=== PATIENT | male | born 1930 | race Caucasian/White ===

== ENCOUNTER 2016-11-24 16:43 | Emergency (ER) | payer MEDICARE, OTHER ==
[~2016-11-24] VITALS: Ht 172.7 cm; Wt 82.7 kg
[2016-11-24] MEDS ORDERED: AMLO-511 PO (16:54)
[2016-11-24] MEDS ORDERED: VALS80TA2 PO (16:54)
[2016-11-24] MEDS ORDERED: ASPI81 PO (16:54)
[2016-11-24] MEDS ORDERED: FURO40I IV (16:54)
[2016-11-24] MEDS ORDERED: FINA5TAB41 PO (16:54)
[2016-11-24] MEDS ORDERED: HYDROCODONE/ACETAMINOPHEN 10-325 MG TABLET PO ONE (17:15)
[2016-11-24 18:06] LABS: GLUCOSE,POINT OF CARE 141 MG/DL (70-110)
[2016-11-24 18:56] VITALS: BP 145/76
[2016-12-19] MEDS ORDERED: DSS100 PO (14:12)
[2016-12-19] MEDS ORDERED: FERR-89 PO (14:12)
== END 2016-11-24 19:21 | disposition home or self-care (01) ==
LOC: EMS 16:44
DX: S43.402A Unspecified sprain of left shoulder joint, initial encounter (principal); I11.9 Hypertensive heart disease without heart failure; Z79.82 Long term (current) use of aspirin; X58.XXXA Exposure to other specified factors, initial encounter; Y93.89 Activity, other specified; Y92.89 Other specified places as the place of occurrence of the external cause; Y99.8 Other external cause status
CPT/HCPCS: 82962; 99284

== ENCOUNTER 2016-12-05 20:36 | Inpatient (IN) | payer MEDICARE, OTHER ==
[~2016-12-05] VITALS: Ht 175.3 cm; Wt 83.0 kg
[~2016-12-05 20:36] MED LIST: AMLO-511 PO; ASPI81 PO; FINA5TAB41 PO; FURO40I IV; VALS80TA2 PO
[2016-12-05 21:28] LABS: BASOPHILS % (AUTO) 0.3 % (0.0-2.0); EOSINOPHILS % (AUTO) 3.3 % (1.0-6.0); HEMATOCRIT 24.2 % (41-53); HEMOGLOBIN 7.6 g/dL (13.5-17.5); LYMPHOCYTES # (AUTO) 0.7 K/uL (1.0-4.8); LYMPHOCYTES % (AUTO) 5.1 % (22.0-44.0); MEAN CORPUSCULAR HEMOGLOBIN 23.7 pg (26.0-34.0); MEAN CORPUSCULAR HGB CONC 31.2 G/dL (31.0-37.0); MEAN CORPUSCULAR VOLUME 76 fL (80-100); MONOCYTES # (AUTO) 0.5 K/uL (0.1-1.0); MONOCYTES % (AUTO) 3.8 % (2.0-9.0); NEUTROPHILS # (AUTO) 11.4 K/uL (1.8-7.7); PLATELET COUNT (AUTO) 670 K/uL (150-450); RED BLOOD CELL COUNT(AUTO) 3.19 MIL/uL (4.50-5.90); RED CELL DISTRIBUTION WIDTH 17.4 % (11.5-14.5)
[2016-12-05 21:29] LABS: NEUTROPHILS % (AUTO) 87.5 % (40.0-70.0)
[2016-12-05 21:39] LABS: ANION GAP 7 mmol/L (8-16); CALCIUM, TOTAL 8.5 mg/dL (8.8-10.5); CARBON DIOXIDE 28 mmol/L (22-29); CHLORIDE 106 mmol/L (98-107); CREATININE 1.85 mg/dL (0.60-1.30); GLOMERULAR FILTR. RATE CALC 35 mL/min (>60); POTASSIUM 4.1 mmol/L (3.5-5.1); SODIUM SERUM 141 mmol/L (136-145); UREA NITROGEN, BLOOD 32 mg/dL (7-18)
[2016-12-05 21:43] LABS: INR 1.1 (0.9-1.1); PROTHROMBIN TIME 11.6 SEC (9.4-11.6)
[2016-12-05 21:46] LABS: ALANINE AMINOTRANSFERASE 42 U/L (12-78); ALBUMIN 2.2 g/dL (3.4-5.0); ASPARTATE AMINOTRANSFERASE 24 U/L (15-37); BILIRUBIN,TOTAL 0.3 mg/dL (0.1-1.0); CREATINE KINASE, TOTAL 49 U/L (39-308); TOTAL PROTEIN, SERUM 7.7 g/dL (6.4-8.2)
[2016-12-05 21:48] LABS: B-TYPE NATRIURETIC PEPTIDE 438 pg/mL (0-100)
[2016-12-05 21:51] LABS: RBC MORPHOLOGY COMMENT ABNORMAL RBC MORPH
[2016-12-05 22:03] LABS: APPEARANCE,URINE CLOUDY (CLEAR); GLUCOSE, URINE (UA) NEGATIVE (NEGATIVE); PROTEIN,URINE SEE CONFIRM (NEGATIVE)
[2016-12-05 22:04] LABS: ADD UA MICROSCOPIC YES; KETONES,URINE NEGATIVE (NEGATIVE); LEUKOCYTE ESTERASE ,URINE MODERATE (NEGATIVE); OCCULT BLOOD,URINE MODERATE (NEGATIVE)
[2016-12-05 22:09] LABS: RBC,URINE 0-2 /HPF (0-2); SULFOSALICYLIC ACID,URINE 2+ (Negative); WBC,URINE 26-50 /HPF (0-5)
[2016-12-05] MEDS ORDERED: BISACODYL 10 MG RECTAL RECTAL SUPPOSITORY PR PRN (23:00)
[2016-12-05] MEDS ORDERED: MAGNESIUM HYDROXIDE SUSPENSION 30 ML UDCUP PO PRN (23:00)
[2016-12-05] MEDS ORDERED: ONDANSETRON HCL 4 MG/2 ML VIAL IVP PRN (23:00)
[2016-12-05] MEDS ORDERED: ZOLPIDEM TARTRATE 5 MG TABLET PO PRN (23:00)
[2016-12-05] MEDS ORDERED: CefTRIAXone 1 GM/DEXTROSE 50 ML IV ONE (23:15)
[2016-12-06] VITALS (16 sets, daily range): BP systolic 134–151; BP diastolic 53–91
[2016-12-06] MEDS: ACETAMINOPHEN 325 MG TABLET PO PRN ×3 (01:52→20:35)
[2016-12-06] MEDS ORDERED: INFLUENZA VIRUS VACCINE QVS 2016-17 (3YR+)/PF 60 MCG/0.5 ML SYRINGE IM ONE (02:30)
[2016-12-06] MEDS ORDERED: PNEUMOCOCCAL VACCINE POLYVALENT 0.5 ML VIAL [PPSV23] IM ONE (02:30)
[2016-12-06 05:59] LABS: BASOPHILS % (AUTO) 0.1 % (0.0-2.0); EOSINOPHILS % (AUTO) 3.4 % (1.0-6.0); HEMATOCRIT 21.6 % (41-53); LYMPHOCYTES # (AUTO) 0.8 K/uL (1.0-4.8); LYMPHOCYTES % (AUTO) 6.6 % (22.0-44.0); MEAN CORPUSCULAR HEMOGLOBIN 23.9 pg (26.0-34.0); MEAN CORPUSCULAR HGB CONC 31.5 G/dL (31.0-37.0); MEAN CORPUSCULAR VOLUME 76 fL (80-100); MONOCYTES # (AUTO) 0.6 K/uL (0.1-1.0); MONOCYTES % (AUTO) 4.9 % (2.0-9.0); PLATELET COUNT (AUTO) 578 K/uL (150-450); RED BLOOD CELL COUNT(AUTO) 2.85 MIL/uL (4.50-5.90); RED CELL DISTRIBUTION WIDTH 16.9 % (11.5-14.5); WHITE BLOOD COUNT (AUTO) 11.7 K/uL (4.5-11.0)
[2016-12-06 06:17] LABS: CALCIUM, TOTAL 8.2 mg/dL (8.8-10.5); CHOL/HDL RATIO 3.4 (4.2-7.3); CREATINE KINASE, TOTAL 33 U/L (39-308); CREATININE 1.62 mg/dL (0.60-1.30); GLOMERULAR FILTR. RATE CALC 41 mL/min (>60); THYROID STIMULATING HORMONE 5.96 uIU/mL (0.36-3.74); UREA NITROGEN, BLOOD 29 mg/dL (7-18)
[2016-12-06 06:54] LABS: HEMOGLOBIN 6.8 g/dL (13.5-17.5)
[2016-12-06 06:55] LABS: RBC MORPHOLOGY COMMENT ABNORMAL RBC MORPH
[2016-12-06 07:27] LABS: ANION GAP 11 mmol/L (8-16); CARBON DIOXIDE 26 mmol/L (22-29); CHLORIDE 108 mmol/L (98-107); POTASSIUM 3.9 mmol/L (3.5-5.1); SODIUM SERUM 145 mmol/L (136-145)
[2016-12-06] MEDS: AmLODIPine BESYLATE 5 MG TABLET PO SCH (07:51)
[2016-12-06] MEDS: PANTOPRAZOLE SODIUM 40 MG/VIAL IVP SCH (07:51)
[2016-12-06] MEDS: FINASTERIDE 5 MG TABLET PO SCH (07:51)
[2016-12-06 08:23] LABS: HEMOGLOBIN A1C 6.4 % (4.5-6.2)
[2016-12-06] MEDS ORDERED: VALSARTAN 40 MG TABLET PO SCH (09:00)
[2016-12-06] MEDS ORDERED: DiphenhydrAMINE HCL 25 MG CAPSULE PO ONE (09:30)
[2016-12-06] MEDS ORDERED: FUROSEMIDE 20 MG/2 ML VIAL IVP ONE (09:30)
[2016-12-06] MEDS ORDERED: SODIUM CHLORIDE 0.9% 250 ML IV ONE ×2 (10:12→23:06)
[2016-12-06 11:10] LABS: CALCIUM, TOTAL 8.2 mg/dL (8.8-10.5); CREATININE 1.63 mg/dL (0.60-1.30); POTASSIUM 3.9 mmol/L (3.5-5.1)
[2016-12-06 11:12] LABS: HEMATOCRIT 22.3 % (41-53); MEAN CORPUSCULAR HEMOGLOBIN 23.9 pg (26.0-34.0); MEAN CORPUSCULAR HGB CONC 31.5 G/dL (31.0-37.0); MEAN CORPUSCULAR VOLUME 76 fL (80-100); RED BLOOD CELL COUNT(AUTO) 2.94 MIL/uL (4.50-5.90); RED CELL DISTRIBUTION WIDTH 17.4 % (11.5-14.5)
[2016-12-06 11:13] LABS: BASOPHILS % (AUTO) 0.2 % (0.0-2.0); EOSINOPHILS % (AUTO) 2.9 % (1.0-6.0); LYMPHOCYTES # (AUTO) 0.6 K/uL (1.0-4.8); LYMPHOCYTES % (AUTO) 5.1 % (22.0-44.0); MONOCYTES # (AUTO) 0.6 K/uL (0.1-1.0); NEUTROPHILS # (AUTO) 10.4 K/uL (1.8-7.7); NEUTROPHILS % (AUTO) 86.8 % (40.0-70.0); PLATELET COUNT (AUTO) 593 K/uL (150-450); RBC MORPHOLOGY COMMENT ABNORMAL RBC MORPH
[2016-12-06 17:55] LABS: HEMATOCRIT 25.3 % (41-53)
[2016-12-06] MEDS: CefTRIAXone 1 GM/DEXTROSE 50 ML IV SCH (23:09)
[2016-12-07] VITALS (15 sets, daily range): BP systolic 120–146; BP diastolic 61–98
[2016-12-07] MEDS ORDERED: FUROSEMIDE 20 MG/2 ML VIAL IVP ONE (06:15)
[2016-12-07] MEDS ORDERED: DiphenhydrAMINE HCL 25 MG CAPSULE PO ONE (06:15)
[2016-12-07 07:39] LABS: BASOPHILS % (AUTO) 0.1 % (0.0-2.0); HEMATOCRIT 26.2 % (41-53); HEMOGLOBIN 8.4 g/dL (13.5-17.5); LYMPHOCYTES # (AUTO) 0.8 K/uL (1.0-4.8); LYMPHOCYTES % (AUTO) 5.4 % (22.0-44.0); MEAN CORPUSCULAR HEMOGLOBIN 24.6 pg (26.0-34.0); MEAN CORPUSCULAR VOLUME 77 fL (80-100); MONOCYTES # (AUTO) 0.8 K/uL (0.1-1.0); MONOCYTES % (AUTO) 5.3 % (2.0-9.0); NEUTROPHILS # (AUTO) 12.6 K/uL (1.8-7.7); PLATELET COUNT (AUTO) 622 K/uL (150-450); RED BLOOD CELL COUNT(AUTO) 3.41 MIL/uL (4.50-5.90); RED CELL DISTRIBUTION WIDTH 17.1 % (11.5-14.5); WHITE BLOOD COUNT (AUTO) 14.5 K/uL (4.5-11.0)
[2016-12-07 07:48] LABS: CALCIUM, TOTAL 8.5 mg/dL (8.8-10.5); CREATININE 1.62 mg/dL (0.60-1.30); POTASSIUM 4.1 mmol/L (3.5-5.1)
[2016-12-07 07:51] LABS: NEUTROPHILS % (AUTO) 87.2 % (40.0-70.0)
[2016-12-07 08:29] LABS: MAGNESIUM 2.1 mg/dL (1.80-2.40); PHOSPHORUS 3.1 mg/dL (2.5-4.9)
[2016-12-07 08:33] LABS: RBC MORPHOLOGY COMMENT ABNORMAL RBC MORPH
[2016-12-07] MEDS: FINASTERIDE 5 MG TABLET PO SCH (08:51)
[2016-12-07] MEDS: AmLODIPine BESYLATE 5 MG TABLET PO SCH (08:51)
[2016-12-07] MEDS: PANTOPRAZOLE SODIUM 40 MG/VIAL IVP SCH (08:51)
[2016-12-07] MEDS: EPOETIN ALFA 10,000 UNITS/ML VIAL SQ SCH (08:54)
[2016-12-07] MEDS ORDERED: SODIUM CHLORIDE 0.9% 250 ML IV ONE (10:24)
[2016-12-07] MEDS ORDERED: 0.9% SODIUM CHLORIDE 10 ML SYRINGE IVP PRN (12:15)
[2016-12-07] MEDS: SOD FERRIC GLUC COMPLX/SUCROSE 125 MG in SODIUM CHLORIDE 0.9% 100 ML IV SCH (17:11)
[2016-12-07] MEDS: ACETAMINOPHEN 325 MG TABLET PO PRN (19:51)
[2016-12-07] MEDS: CefTRIAXone 1 GM/DEXTROSE 50 ML IV SCH (23:16)
[2016-12-08 03:52] VITALS: BP 138/73
[2016-12-08 08:03] LABS: EOSINOPHILS % (AUTO) 2.5 % (1.0-6.0); LYMPHOCYTES # (AUTO) 1.1 K/uL (1.0-4.8); LYMPHOCYTES % (AUTO) 7.8 % (22.0-44.0); MEAN CORPUSCULAR HEMOGLOBIN 25.1 pg (26.0-34.0); MEAN CORPUSCULAR HGB CONC 31.9 G/dL (31.0-37.0); MEAN CORPUSCULAR VOLUME 79 fL (80-100); MONOCYTES # (AUTO) 0.8 K/uL (0.1-1.0); MONOCYTES % (AUTO) 5.7 % (2.0-9.0); NEUTROPHILS # (AUTO) 11.7 K/uL (1.8-7.7); PLATELET COUNT (AUTO) 553 K/uL (150-450); RED BLOOD CELL COUNT(AUTO) 3.57 MIL/uL (4.50-5.90); RED CELL DISTRIBUTION WIDTH 18.3 % (11.5-14.5)
[2016-12-08 08:20] LABS: CALCIUM, TOTAL 8.4 mg/dL (8.8-10.5); CREATININE 1.56 mg/dL (0.60-1.30); POTASSIUM 4.1 mmol/L (3.5-5.1)
[2016-12-08 08:30] VITALS: BP 142/72
[2016-12-08] MEDS: FINASTERIDE 5 MG TABLET PO SCH (10:13)
[2016-12-08] MEDS: AmLODIPine BESYLATE 5 MG TABLET PO SCH (10:13)
[2016-12-08] MEDS: PANTOPRAZOLE SODIUM 40 MG/VIAL IVP SCH (10:22)
[2016-12-08 12:39] VITALS: BP 136/73
[2016-12-08 16:39] VITALS: BP 140/75
[2016-12-08] MEDS: SOD FERRIC GLUC COMPLX/SUCROSE 125 MG in SODIUM CHLORIDE 0.9% 100 ML IV SCH (17:36)
[2016-12-08 19:15] VITALS: BP 152/74
[2016-12-08] MEDS: ACETAMINOPHEN 325 MG TABLET PO PRN (19:25)
[2016-12-08] MEDS: CefTRIAXone 1 GM/DEXTROSE 50 ML IV SCH (23:22)
[2016-12-09] VITALS: BP 143/72
[2016-12-09 04:00] VITALS: BP 143/74
[2016-12-09] MEDS ORDERED: LIDOCAINE HCL/PF 2% 5 ML VIAL IM ONE (04:18)
[2016-12-09] MEDS ORDERED: PROPOFOL 1% 20 ML VIAL IVP ONE (04:18)
[2016-12-09 06:36] LABS: BASOPHILS % (AUTO) 0.1 % (0.0-2.0); EOSINOPHILS % (AUTO) 3.8 % (1.0-6.0); HEMATOCRIT 28.8 % (41-53); HEMOGLOBIN 9.2 g/dL (13.5-17.5); LYMPHOCYTES # (AUTO) 0.8 K/uL (1.0-4.8); LYMPHOCYTES % (AUTO) 6.3 % (22.0-44.0); MEAN CORPUSCULAR HEMOGLOBIN 25.3 pg (26.0-34.0); MEAN CORPUSCULAR HGB CONC 31.8 G/dL (31.0-37.0); MEAN CORPUSCULAR VOLUME 79 fL (80-100); MONOCYTES # (AUTO) 0.6 K/uL (0.1-1.0); MONOCYTES % (AUTO) 4.5 % (2.0-9.0); NEUTROPHILS # (AUTO) 11.4 K/uL (1.8-7.7); PLATELET COUNT (AUTO) 543 K/uL (150-450); RED BLOOD CELL COUNT(AUTO) 3.63 MIL/uL (4.50-5.90); RED CELL DISTRIBUTION WIDTH 18.5 % (11.5-14.5); WHITE BLOOD COUNT (AUTO) 13.3 K/uL (4.5-11.0)
[2016-12-09 06:57] LABS: INR 1.1 (0.9-1.1); PROTHROMBIN TIME 11.8 SEC (9.4-11.6)
[2016-12-09 07:06] LABS: NEUTROPHILS % (AUTO) 85.3 % (40.0-70.0); RBC MORPHOLOGY COMMENT ABNORMAL RBC MORPH
[2016-12-09 07:30] LABS: CALCIUM, TOTAL 8.4 mg/dL (8.8-10.5); CREATININE 1.62 mg/dL (0.60-1.30); POTASSIUM 4.2 mmol/L (3.5-5.1)
[2016-12-09 08:15] VITALS: BP 144/67
[2016-12-09] MEDS: AmLODIPine BESYLATE 5 MG TABLET PO SCH (09:00)
[2016-12-09] MEDS: FINASTERIDE 5 MG TABLET PO SCH (09:00)
[2016-12-09] MEDS: PANTOPRAZOLE SODIUM 40 MG/VIAL IVP SCH (09:00)
[2016-12-09] MEDS ORDERED: SODIUM CHLORIDE 0.9% 1,000 ML IV ONE ×2 (10:51→11:00)
[2016-12-09] MEDS ORDERED: FURO40 PO (10:56)
[2016-12-09] MEDS ORDERED: FentaNYL CITRATE-PF 100 MCG/2 ML VIAL ONE (11:35)
[2016-12-09] MEDS ORDERED: MIDAZOLAM HCL 5 MG/ML VIAL ONE (11:36)
[2016-12-09] MEDS ORDERED: PEG 3350/NA SULF,BICARB,CL/KCL 4000 ML SOLUTION PO ONE (12:30)
[2016-12-09] MEDS ORDERED: MEPERIDINE-PF 25 MG/ML SYRINGE IVP PRN (12:30)
[2016-12-09] MEDS ORDERED: FentaNYL CITRATE-PF 100 MCG/2 ML VIAL IVP PRN (12:30)
[2016-12-09] MEDS ORDERED: HYDROmorphone 2 MG/ML SYRINGE IVP PRN (12:30)
[2016-12-09] MEDS: SOD FERRIC GLUC COMPLX/SUCROSE 125 MG in SODIUM CHLORIDE 0.9% 100 ML IV SCH (16:05)
[2016-12-09 16:08] VITALS: BP 154/73
[2016-12-09 19:21] VITALS: BP 157/79
[2016-12-09] MEDS: OXYGEN THERAPY IH SCH (20:00)
[2016-12-09] MEDS: CefTRIAXone 1 GM/DEXTROSE 50 ML IV SCH (22:44)
[2016-12-09 23:30] VITALS: BP 149/81
[2016-12-10 04:32] VITALS: BP 138/77
[2016-12-10 07:17] VITALS: BP 150/75
[2016-12-10] MEDS: OXYGEN THERAPY IH SCH ×2 (08:00→20:00)
[2016-12-10 09:02] LABS: CALCIUM, TOTAL 8.7 mg/dL (8.8-10.5); CREATININE 1.34 mg/dL (0.60-1.30); POTASSIUM 4.4 mmol/L (3.5-5.1)
[2016-12-10 11:31] VITALS: BP 160/80
[2016-12-10] MEDS ORDERED: SODIUM CHLORIDE 0.9% 1,000 ML IV ONE ×2 (13:13→13:45)
[2016-12-10] MEDS: FINASTERIDE 5 MG TABLET PO SCH (16:02)
[2016-12-10] MEDS: PANTOPRAZOLE SODIUM 40 MG/VIAL IVP SCH (16:02)
[2016-12-10] MEDS: SOD FERRIC GLUC COMPLX/SUCROSE 125 MG in SODIUM CHLORIDE 0.9% 100 ML IV SCH (16:03)
[2016-12-10] MEDS: AmLODIPine BESYLATE 5 MG TABLET PO SCH (16:03)
[2016-12-10] MEDS: EPOETIN ALFA 10,000 UNITS/ML VIAL SQ SCH (16:04)
[2016-12-10] MEDS ORDERED: SODIUM CHLORIDE 0.9% 500 ML IV ONE (16:11)
[2016-12-10 19:45] VITALS: BP 142/78
[2016-12-10 23:42] VITALS: BP 150/74
[2016-12-11] VITALS (7 sets, daily range): BP systolic 111–151; BP diastolic 43–82
[2016-12-11] MEDS: CefTRIAXone 1 GM/DEXTROSE 50 ML IV SCH (00:07)
[2016-12-11 07:09] LABS: CALCIUM, TOTAL 8.9 mg/dL (8.8-10.5); CREATININE 1.31 mg/dL (0.60-1.30); MAGNESIUM 2.3 mg/dL (1.80-2.40); PHOSPHORUS 3.7 mg/dL (2.5-4.9); POTASSIUM 3.8 mmol/L (3.5-5.1)
[2016-12-11] MEDS: OXYGEN THERAPY IH SCH ×2 (08:00→20:00)
[2016-12-11] MEDS ORDERED: SESTAMIBI TC99M/UD ISOTOPE 1 EA INJ INJ ONE ×2 (10:35→13:30)
[2016-12-11] MEDS ORDERED: REGADENOSON 0.4 MG/5 ML PF SYRINGE IVP ONE ×2 (10:36→12:00)
[2016-12-11] MEDS: PANTOPRAZOLE SODIUM 40 MG/VIAL IVP SCH (11:38)
[2016-12-11] MEDS: AmLODIPine BESYLATE 5 MG TABLET PO SCH (11:39)
[2016-12-11] MEDS: FINASTERIDE 5 MG TABLET PO SCH (11:39)
[2016-12-11] MEDS: SOD FERRIC GLUC COMPLX/SUCROSE 125 MG in SODIUM CHLORIDE 0.9% 100 ML IV SCH (18:40)
[2016-12-12] MEDS: CefTRIAXone 1 GM/DEXTROSE 50 ML IV SCH (00:06)
[2016-12-12 00:12] VITALS: BP 131/65
[2016-12-12 04:38] VITALS: BP 144/73
[2016-12-12 07:11] VITALS: BP 147/68
[2016-12-12] MEDS: OXYGEN THERAPY IH SCH (08:00)
[2016-12-12] MEDS: PANTOPRAZOLE SODIUM 40 MG/VIAL IVP SCH (08:24)
[2016-12-12] MEDS: FINASTERIDE 5 MG TABLET PO SCH (08:24)
[2016-12-12] MEDS: AmLODIPine BESYLATE 5 MG TABLET PO SCH (08:24)
[2016-12-12] MEDS: EPOETIN ALFA 10,000 UNITS/ML VIAL SQ SCH (08:29)
[2016-12-12 09:07] LABS: APPEARANCE,URINE CLEAR (CLEAR); GLUCOSE, URINE (UA) NEGATIVE (NEGATIVE); KETONES,URINE NEGATIVE (NEGATIVE); LEUKOCYTE ESTERASE ,URINE NEGATIVE (NEGATIVE); OCCULT BLOOD,URINE SMALL (NEGATIVE); PH,URINE 5.5 (5.0-8.0); PROTEIN,URINE SEE CONFIRM (NEGATIVE)
[2016-12-12 09:08] LABS: ADD UA MICROSCOPIC YES
[2016-12-12 09:10] LABS: SULFOSALICYLIC ACID,URINE 2+ (Negative)
[2016-12-12 09:12] LABS: RBC,URINE 0-2 /HPF (0-2); WBC,URINE 0-2 /HPF (0-5)
[2016-12-12] MEDS ORDERED: LEVO500 PO (11:12)
[2016-12-12 11:21] VITALS: BP 137/72
[2016-12-12] MEDS ORDERED: EPOE20006 SQ (11:21)
[2016-12-12] MEDS ORDERED: PANT40TA25 PO (11:24)
[2016-12-12] MEDS ORDERED: ACET-2247 PO (11:27)
[2016-12-12] MEDS ORDERED: BISA10S PR (11:28)
[2016-12-12] MEDS ORDERED: MOM30 PO (11:29)
[2016-12-12] MEDS ORDERED: ONDA4 PO (11:29)
[2016-12-12] MEDS ORDERED: ZOLP5 PO (11:30)
[2016-12-19] MEDS ORDERED: FERR-89 PO (14:12)
[2016-12-19] MEDS ORDERED: DSS100 PO (14:12)
== END 2016-12-12 15:45 | DRG 377 ==
LOC: EMS 20:37 → 5N 23:30
PROVIDERS: ADMIT Internal Medicine Geriatric Medicine; ATTEND Internal Medicine Geriatric Medicine
PROC: 0DB68ZX Excision of Stomach, Via Natural or Artificial Opening Endoscopic, Diagnostic (ICD-10-PCS; principal; 2016-12-09 12:00)
PROC: 0D5N8ZZ Destruction of Sigmoid Colon, Via Natural or Artificial Opening Endoscopic (ICD-10-PCS; 2016-12-10)
PROC: 30233N1 Transfusion of Nonautologous Red Blood Cells into Peripheral Vein, Percutaneous Approach (ICD-10-PCS; 2016-12-10)
DX: K92.2 Gastrointestinal hemorrhage, unspecified (principal); E43 Unspecified severe protein-calorie malnutrition; N17.9 Acute kidney failure, unspecified; N39.0 Urinary tract infection, site not specified; J94.8 Other specified pleural conditions; D50.9 Iron deficiency anemia, unspecified; I71.2 Thoracic aortic aneurysm, without rupture; K29.70 Gastritis, unspecified, without bleeding; N18.3 Chronic kidney disease, stage 3 (moderate); B96.89 Other specified bacterial agents as the cause of diseases classified elsewhere; D12.5 Benign neoplasm of sigmoid colon; D75.89 Other specified diseases of blood and blood-forming organs; K64.8 Other hemorrhoids; I12.9 Hypertensive chronic kidney disease with stage 1 through stage 4 chronic kidney disease, or unspecified chronic kidney disease; L98.9 Disorder of the skin and subcutaneous tissue, unspecified; M17.11 Unilateral primary osteoarthritis, right knee; M75.52 Bursitis of left shoulder; N40.0 Benign prostatic hyperplasia without lower urinary tract symptoms; Z77.090 Contact with and (suspected) exposure to asbestos; Z79.1 Long term (current) use of non-steroidal anti-inflammatories (NSAID); Z79.82 Long term (current) use of aspirin; Z87.891 Personal history of nicotine dependence; Z68.27 Body mass index [BMI] 27.0-27.9, adult
CPT/HCPCS: 70450; 71250; 72131; 73221; 76770; 78452; 82271; 82306; 82570; 82607; 82746; 83036; 83540; 83550; 83735; 84100; 84300; 84439; 84443; 84540; 85014; 85018; 86850; 86900; 86901; 86920; 87086; 87324; 87449; 88305; 88312; 90471; 93005; 93017; 93306; 93970; 96365; 97110; 97161; 97166; 97530; 97535; 99285; A9500; C9113; J0696; J0885; J1940; J2250; J2704; J2785; J2916; J3010; J3490; J7030; J7040; J7050; P9016

== ENCOUNTER → 2016-12-19 | Outpatient (CLI) | payer MEDICARE, OTHER ==
[~2016-12-19] MED LIST changes: +ACET-2247 PO; -ASPI81 PO; +BISA10S PR; +DSS100 PO; +EPOE20006 SQ; +FERS325 PO; -FURO40I IV; +LEVO500 PO; +MOM30 PO; +ONDA4 PO; +PANT40TA25 PO; +ZOLP5 PO
[2016-12-19 14:10] VITALS: BP 146/64
== END | disposition home or self-care (01) ==
LOC: SRCNTR 13:38
PROVIDERS: ATTEND Internal Medicine Cardiovascular Disease
DX: I12.9 Hypertensive chronic kidney disease with stage 1 through stage 4 chronic kidney disease, or unspecified chronic kidney disease (principal); N18.3 Chronic kidney disease, stage 3 (moderate); D64.9 Anemia, unspecified; M25.512 Pain in left shoulder; I25.10 Atherosclerotic heart disease of native coronary artery without angina pectoris; K92.2 Gastrointestinal hemorrhage, unspecified; I73.9 Peripheral vascular disease, unspecified
CPT/HCPCS: G0463

== ENCOUNTER → 2017-04-30 | Outpatient (CLI) | payer MEDICARE, OTHER ==
[~2017-04-30] MED LIST changes: -BISA10S PR; +CARV6 PO; +FERR-89 PO; -FERS325 PO; +FURO20 PO; +HYDR-309 PO; -LEVO500 PO; +POTA8TAB4 PO
[2017-04-30 10:40] VITALS: BP 138/76
== END | disposition home or self-care (01) ==
LOC: SRCNTR 10:18
PROVIDERS: ATTEND Internal Medicine Cardiovascular Disease
DX: I12.9 Hypertensive chronic kidney disease with stage 1 through stage 4 chronic kidney disease, or unspecified chronic kidney disease (principal); N18.3 Chronic kidney disease, stage 3 (moderate); D64.9 Anemia, unspecified; R13.10 Dysphagia, unspecified; M25.512 Pain in left shoulder
CPT/HCPCS: G0463